=== PATIENT | female | born 1990 | race Caucasian/White ===

== ENCOUNTER → 2020-06-01 | Outpatient (CLI) | payer BC ==
--- NOTE | 2020-06-01 14:07 | US ---
EXAMINATION TYPE: US venous doppler duplex LE LT DATE OF EXAM: 06/01/2020 1:51 PM COMPARISON: NONE CLINICAL HISTORY: LLE Pain and swelling M79.662 R22.42. SIDE PERFORMED: Left TECHNIQUE: The lower extremity deep venous system is examined utilizing real time linear array sonog dougie with graded compression, doppler sonography and color-flow sonography. VESSELS IMAGED: External Iliac Vein (EIV) Common Femoral Vein Deep Femoral Vein Greater Saphenous Vein * Femoral Vein Popliteal Vein Small Saphenous Vein * Proximal Calf Veins (* superficial vessels) Left Leg: Negative for DVT IMPRESSION: No evidence for DVT at this time.
== END | disposition home or self-care (01) ==
LOC: RADUSWWP 13:20
PROVIDERS: ATTEND Obstetrics & Gynecology
DX: M79.662 Pain in left lower leg (principal); R22.42 Localized swelling, mass and lump, left lower limb

== ENCOUNTER 2020-08-18 06:15 | Inpatient (IN) | payer BC ==
[2020-08-25] MEDS ORDERED: METHYLERGONOVINE 0.2 MG/ML 1 ML AMP IM PRN (02:29)
[2020-08-25] MEDS ORDERED: LIDOCAINE 0.5% (PF) 5 MG/ML (50 ML SDV) SQ PRN (02:29)
[2020-08-25] MEDS ORDERED: OXYTOCIN 10 UNIT/ML 1 ML VIAL IM PRN (02:29)
[2020-08-25] MEDS ORDERED: CARBOPROST TROMETHAMINE 250 MCG/ML 1 ML AMP IM PRN (02:29)
[2020-08-25] MEDS ORDERED: TERBUTALINE 1 MG/ML VIAL SQ PRN (02:29)
[2020-08-25] MEDS ORDERED: OXYTOCIN 30 UNITS/500 ML NS 30 UNIT in SALINE 1 500ML.BAG IV SCH (02:30)
[2020-08-25] MEDS: LACTATED RINGERS 1,000 ML IV SCH ×2 (02:46→07:50)
[2020-08-25 02:49] LABS: Basophils # (A) 0.1 k/uL (0-0.2); Basophils % (A) 1 %; Eosinophils # (A) 0.1 k/uL (0-0.7); Eosinophils % (A) 1 %; HCT 40.1 % (34.0-46.0); Lymphocytes # (A) 1.4 k/uL (1.0-4.8); Lymphocytes % (A) 12 %; MCH 31.8 pg (25.0-35.0); MCHC 34.8 g/dL (31.0-37.0); MCV 91.4 fL (80.0-100.0); Mean Platelet Volume 7.8; Monocytes # (A) 0.5 k/uL (0-1.0); Monocytes % (A) 4 %; Neutrophils # (A) 9.2 k/uL (1.3-7.7); Neutrophils % (A) 81 %; Platelet Count 245 k/uL (150-450); RBC 4.39 m/uL (3.80-5.40); RDW 13.2 % (11.5-15.5); WBC 11.3 k/uL (3.8-10.6)
[2020-08-25] MEDS: BUTORPHANOL 1 MG/ML 1 ML VIAL IV PRN ×2 (02:54→04:46)
[2020-08-25] MEDS ORDERED: SODIUM CHLORIDE 0.9% 100 ML BAG ONE (07:44)
[2020-08-25] MEDS ORDERED: fentaNYL (PF) 50 MCG/ML 5 ML AMP ONE (07:44)
[2020-08-25] MEDS ORDERED: ROPIVACAINE 5MG/ML 20ML VIAL ONE (07:44)
--- NOTE | 2020-08-25 07:46 | P.HPOB ---
History of Present Illness H&P Date: 08/25/20 Chief Complaint: Strong regular uterine contractions This is a 29-year-old white female 1 para 0 EDC 08/25/2040 weeks gestation. Patient presented through the night with strong regular uterine contractions, in active labor. Fetus is been active throughout the . She reported or fluid gush early this morning, clear fluid. She denies vaginal bleeding. Past medical history is essentially negative. Past surgical history colposcopy, I surgery, ankle repair. Current medications vitamins, baby aspirin daily. ALLERGIES none known. Family history significant for diabetes. Social history patient is single, boyfriend is present and involved. She is a former tobacco smoker, none with . She denies alcohol or drug use with the . history significant for blood type O positive, rubella status immune. VDRL testing, urine culture, gonorrhea and chlamydia cultures, hepatitis B surface antigen, HIV testing all negative. Three-hour GTT consistent with gestational diabetes. Group B strep cultures negative. Single umbilical artery was noted sonographically, nonstress testing weekly has been reactive. On examination this is a pleasant young female who is 5 foot 4 inches, 186 pounds, blood pressure 140/85 on admission with a pulse of 67. The general physical exam is within normal limits. The chest is clear in all de leon. Extremities reveal no edema. Cervix is 6 cm dilated, 90% effaced, -1 station. Artificial amniorrhexis of a fore bag reveals clear fluid. heart rate is consistent with reactive NST. Patient is quite uncomfortable at this time and is requesting epidural. Impression: 40 week intrauterine , active spontaneous labor, gestational diabetes, single umbilical artery. All signs reassuring. Plan: Epidural will be placed at this time. Consider oxytocin augmentation pend ing clinical progress. Continue close maternal and surveillance. Anticipate normal spontaneous vaginal delivery. Review of Systems Constitutional: Reports as per HPI Past Medical History Past Medical History: No Reported History Additional Past Medical History / Comment(s): Gestational diabetes History of Any Multi-Drug Resistant Organisms: None Reported Past Surgical History: Orthopedic Surgery Additional Past Surgical History / Comment(s): Eye surgery and ankle surgery Past Anesthesia/Blood Transfusion Reactions: No Reported Reaction Past Psychological History: No Psychological Hx Reported, Anxiety, Depression Smoking Status: Never smoker Past Alcohol Use History: None Reported Past Drug Use History: None Reported - Past Family History Mother Family Medical History: No Reported History Medications and Allergies Home Medications Medication Instructions Recorded Confirmed Type Aspirin [Adult Low Dose Aspirin EC] 81 mg PO DAILY 07/01/20 08/25/20 History Pnv No.95/Ferrous Fum/Folic AC 1 each PO DAILY 07/01/20 08/25/20 History [ Multivitamin Tablet] Allergies Allergy/AdvReac Type Severity Reaction Status Date / Time No Known Allergies Allergy Verified 08/25/20 02:28 Exam Vital Signs Temp Pulse Resp BP 08/25/20 02:31 97.3 F L 67 16 140/85 Intake and Output 08/24/20 08/25/20 08/25/20 22:59 06:59 14:59 Intake Total 500 Balance 500 Intake: IV 500 Other: # Voids 2 Weight 84.368 kg See dictation under HPI please Results Result Diagrams: 08/25/20 02:39 Abnormal Lab Results - Last 24 Hours (Table) 08/25/20 Range/Units 02:39 WBC 11.3 H (3.8-10.6) k/uL Neutrophils # 9.2 H (1.3-7.7) k/uL Assessment and Plan Assessment: Active spontaneous labor, 40 weeks gestation. Single umbilical artery noted. Gestational diabetes with good blood sugar control. Plan: Analgesic options reviewed, epidural requested, anesthesia team aware. Continue close maternal and surveillance. Anticipate normal spontaneous vaginal delivery. Time with Patient: Less than 30
[2020-08-25] MEDS ORDERED: ROPIVACAINE 100 MG, fentaNYL (PF) 200 MCG in SODIUM CHLORIDE 0.9% 76 ML EPIDURAL ONE (08:11)
[2020-08-25 08:24] LABS: Glucose,Whole Blood 121 mg/dL (75-99)
[2020-08-25] MEDS ORDERED: diphenhydrAMINE 25 MG CAP PO PRN (13:06)
[2020-08-25] MEDS ORDERED: ZOLPIDEM 5 MG TAB PO PRN (13:06)
[2020-08-25] MEDS ORDERED: SIMETHICONE 80 MG CHEWABLE PO PRN (13:06)
[2020-08-25] MEDS ORDERED: LANOLIN CREAM 5 GM TUBE TOPICAL PRN (13:06)
[2020-08-25] MEDS ORDERED: HYDROCORTISONE 2.5% RECTAL CREAM 30 GM TUBE RECTAL PRN (13:06)
[2020-08-25] MEDS ORDERED: diphenhydrAMINE 50 MG CAP PO PRN (13:06)
[2020-08-25] MEDS ORDERED: ACETAMINOPHEN TAB 325 MG TAB PO PRN (13:06)
[2020-08-25] MEDS ORDERED: diphenhydrAMINE 50 MG/ML 1 ML VIAL IVP PRN ×2 (13:06)
[2020-08-25] MEDS ORDERED: BENZOCAINE/MENTHOL SPRAY 1 GM/SPRAY AEROSOL TOPICAL PRN (13:06)
--- NOTE | 2020-08-25 13:06 | P.PROBDLV ---
Vaginal Delivery Note - . Vaginal Delivery Note: This is a 29-year-old white female 1 para 0 EDC 08/25/2020 at 40 weeks gestation. Patient presented in active spontaneous labor. remarkable for single umbilical artery, gestational diabetes. Blood sugar on admission 121. Please see dictated history and physical for details. Group B strep cultures negative, blood type O+, rubella status immune. Artificial amniorrhexis revealed clear fluid. Oxytocin was started and titrated per hospital protocol. Epidural was placed per her request. She progressed well and became completely dilated at 1210 hrs. Perineal body was prepped and draped in usual sterile fashion. There were times of decelerations noted, but excellent [id number] variability on internal scalp lead. Patient made great progress in the second stage with steady station. Perineal body was prepped and draped in usual st erile fashion. Infant's head was delivered in the occiput anterior position and he restituted accordingly. There was a tight nuchal cord 1 as well as true knot in the cord 1. Patient was officially delivered of a liveborn male infant at 1246 hrs. Umbilical cord was doubly clamped and ligated, he was handed to waiting rodeo clown for evaluation where scores of 9 and 9 at one and 5 minutes respectively were given. Infant weighed 6 pounds 13.5 ounces or 12[birth year]06/2004 grams. Before meals, it was inspected and noted to be intact with trivascular cord and meconium stained. Placenta is sent to pathology for evaluation for history of 2 vessel cord. Careful inspection of the cervix, vagina, perineum, periurethral, and perirectal areas revealed a first-degree laceration on the patient's right. This was repaired in the usual fashion using repeat suture. All sponge needle and instrument counts are correct at the end of the procedure. Patient and her are allowed to begin the bonding experience in the LDR. Patient is requesting circumcision for her son.
[2020-08-25] MEDS ORDERED: OXYTOCIN 20 UNITS/1000 ML NS 1,000 ML IV SCH (13:15)
[2020-08-25] MEDS: IBUPROFEN 600 MG TAB PO PRN (21:25)
[2020-08-25] MEDS: SENNOSIDES-DOCUSATE SODIUM 1 EACH TAB PO SCH (21:28)
[2020-08-26 07:10] LABS: Basophils % (A) 0 %; Eosinophils # (A) 0.1 k/uL (0-0.7); Eosinophils % (A) 1 %; HCT 30.3 % (34.0-46.0); Lymphocytes # (A) 1.8 k/uL (1.0-4.8); Lymphocytes % (A) 21 %; MCH 31.1 pg (25.0-35.0); MCHC 33.5 g/dL (31.0-37.0); MCV 92.8 fL (80.0-100.0); Mean Platelet Volume 8.4; Monocytes # (A) 0.5 k/uL (0-1.0); Monocytes % (A) 6 %; Neutrophils # (A) 5.9 k/uL (1.3-7.7); Neutrophils % (A) 71 %; Platelet Count 180 k/uL (150-450); RBC 3.26 m/uL (3.80-5.40); RDW 13.4 % (11.5-15.5); WBC 8.4 k/uL (3.8-10.6)
[2020-08-26 07:26] LABS: HGB 10.2 gm/dL (11.4-16.0)
--- NOTE | 2020-08-26 07:38 | P.DS ---
Providers Date of admission: 08/25/20 02:19 Expected date of discharge: 08/26/20 Attending physician: aKtt Dubon Primary care physician: Stated None Hospital Course: This is a 29-year-old 1 para 0 EDC 08/25/2020 at 40 weeks gestation. Patient presented in active spontaneous labor. is remarkable for single umbilical artery and gestational diabetes, good blood sugar control. Please see dictated history and physical for details. Artificial amniorrhexis revealed clear fluid. Oxytocin was given as augmentation. Epidural was placed per her request. She went on to deliver a liveborn male infant with scores of 9 and 9 at one and 5 minutes respectively. There was a nuchal cord 1 that was reduced. There was a two- vessel cord noted, placenta was sent to pathology for evaluation. Estimate a blood loss at delivery 250 mL's. weighed 12/06/2004 grams or 6 pounds 13.5 ounces. Please see dictated delivery note for details. This morning the patient is doing well. She is voiding, inability, passing flatus without difficulty. Vital signs are stable and she is afebrile. Fundus is firm and in the midline, symmetric and 18 week size. Extremities are negative for edema. infant is doing well, circumcision will be performed this morning. Patient will follow-up with me in the office in 6 weeks. I have reminded her no intercourse, tampons or douching. She will use [id number] ibuprofen products as needed for pain. She will call with any fevers shakes or chills, foul smelling or copious lochia, with the passage of large blood clots, with any pain not alleviated by [id number] products, or indeed with any concerns. We have briefly discussed options for contraception and we will discuss this further in the office. Assessment: Doing well day #1 Patient Condition at Discharge: Good Plan - Discharge Summary Discharge Rx Participant: No New Discharge Prescriptions: No Action Pnv No.95/Ferrous Fum/Folic AC [ Multivitamin Tablet] 1 each PO DAILY Aspirin [Adult Low Dose Aspirin EC] 81 mg PO DAILY Discharge Medication List Aspirin [Adult Low Dose Aspirin EC] 81 mg PO DAILY 07/01/20 [History] Pnv No.95/Ferrous Fum/Folic AC [ Multivitamin Tablet] 1 each PO DAILY 07/01/20 [History]
[2020-08-26] MEDS: SENNOSIDES-DOCUSATE SODIUM 1 EACH TAB PO SCH ×2 (08:50→20:52)
[2020-08-26] MEDS: IBUPROFEN 600 MG TAB PO PRN ×2 (08:51→20:52)
[2020-08-26 17:22] VITALS: RESP 16
[2020-08-27] MEDS: IBUPROFEN 600 MG TAB PO PRN (04:05)
[2020-08-27] MEDS: SENNOSIDES-DOCUSATE SODIUM 1 EACH TAB PO SCH (09:16)
[2020-08-27 15:50] VITALS: BP 126/80; PULSE 70; TEMP 98.8
== END 2020-08-27 18:20 | disposition home or self-care (01) | DRG 807 ==
LOC: 4FBP 08-25 02:19
PROVIDERS: ADMIT Obstetrics & Gynecology; ATTEND Obstetrics & Gynecology
PROC: 10E0XZZ Delivery of Products of Conception, External Approach (ICD-10-PCS; principal; 2020-08-25)
PROC: 0HQ9XZZ Repair Perineum Skin, External Approach (ICD-10-PCS; 2020-08-25)
PROC: 10907ZC Drainage of Amniotic Fluid, Therapeutic from Products of Conception, Via Natural or Artificial Opening (ICD-10-PCS; 2020-08-25)
PROC: 3E0R3BZ Introduction of Anesthetic Agent into Spinal Canal, Percutaneous Approach (ICD-10-PCS; 2020-08-25)
DX: O24.429 Gestational diabetes mellitus in childbirth, unspecified control (principal); Z37.0 Single live birth; Z3A.40 40 weeks gestation of pregnancy; O76 Abnormality in fetal heart rate and rhythm complicating labor and delivery; O69.1XX0 Labor and delivery complicated by cord around neck, with compression, not applicable or unspecified; O77.0 Labor and delivery complicated by meconium in amniotic fluid; O70.0 First degree perineal laceration during delivery; Z83.3 Family history of diabetes mellitus; Z79.82 Long term (current) use of aspirin; Z79.899 Other long term (current) drug therapy; Z98.890 Other specified postprocedural states
CPT/HCPCS: 85025; 86850; 86900; 86901

== ENCOUNTER → 2021-07-11 | Outpatient (CLI) | payer BC ==
[2021-07-12 15:15] LABS: Chol/HDL Ratio 3.95 Ratio; HDL Cholesterol 43.5 mg/dL (40.00-60.00); LDL Cholesterol,Calculated 112.3 mg/dL (0.0-131.0); Triglycerides 81.2 mg/dL (0.00-149.00); VLDL Calculation 16.24 mg/dL (5.00-40.00)
== END | disposition home or self-care (01) ==
LOC: LABWHC1 15:33
PROVIDERS: ATTEND Internal Medicine
DX: Z00.00 Encounter for general adult medical examination without abnormal findings (principal)
CPT/HCPCS: 36415; 80061; 82947